=== PATIENT | male | born 1985 ===

== ENCOUNTER 2023-03-29 19:13 | Emergency (ER) | payer SELFPAY ==
[~2023-03-29] VITALS: Ht 175.3 cm; Wt 77.0 kg
[2023-03-29 19:29] VITALS: BP 146/96; PULSE 107; RESP 20; TEMP 98; O2SAT 97
== END 2023-03-29 21:35 | disposition home or self-care (01) ==
LOC: ER 19:13
DX: Z59.00 Homelessness unspecified (principal)
CPT/HCPCS: 99281; 99283